=== PATIENT | male | born 2000 | race Caucasian/White ===

== ENCOUNTER 2024-07-18 15:51 | Emergency (ER) | payer OTHER, SELFPAY ==
[2024-07-18 15:59] VITALS: BP 142/78; PULSE 91; TEMP 36.9; O2SAT 99; BMI 32.3
--- NOTE | 2024-07-18 16:04 | CTR_ITS ---
PROCEDURE INFORMATION: Exam: CT Abdomen And Pelvis Without Contrast Exam date and time: 07/18/2024 4:28 PM Age: 24 years old Clinical indication: Other: Blood in urine; Additional info: Flank pain TECHNIQUE: Imaging protocol: Computed tomography of the abdomen and pelvis without contrast. Radiation optimization: All CT scans at this facility use at least one of these dose optimization techniques: automated exposure control; mA and/or kV adjustment per patient size (includes targeted exams where dose is matched to clinical indication); or iterative reconstruction. COMPARISON: No relevant prior studies available. RADIATION DOSE METRICS: Total DLP (mGy-cm): 988.83 FINDINGS: Liver: Normal. No mass. Gallbladder and biliary ducts: Normal. No calcified stones. No ductal dilation. Pancreas: Normal. No ductal dilation. Spleen: Small incidental benign splenule. The spleen is enlarged measuring 14.6 cm. Adrenal glands: Normal. No mass. Kidneys and ureters: Normal. No hydronephrosis. Stomach and bowel: Unremarkable. No obstruction. No mucosal thickening. Appendix: A normal appendix is identified. Intraperitoneal space: Unremarkable. No free air. No significant fluid collection. Vasculature: Unremarkable. No abdominal aortic aneurysm. Lymph nodes: Unremarkable. No enlarged lymph nodes. Urinary bladder: Unremarkable as visualized. Reproductive: Unremarkable as visualized. Bones/joints: There are moderate degenerative changes across the pubic symphysis. Soft tissues: Unremarkable. CT/CT kidney stone [id number] IMPRESSION: Mild splenomegaly.
--- NOTE | 2024-07-18 16:35 | ED_ITS ---
Documented by User: Valdez Wren DO 07/19/24 16:41 HPI - Male Genitourinary 2 General: Chief complaint: Urogenital-Male Stated complaint: Peeing Blood Time Seen by Provider: 07/18/24 16:03 History of Present Illness: 24-year-old male presents emergency room with complaints of gross hematuria as well as some dysuria. Patient noticed it first afternoon after eaten a meal he went to the bathroom he said he could not tell if the blood in the stool was particularly discolored because the lighting in the bathroom is poorly flushed before he really paid any attention he did notice a little bit of diluted blood mixed with urine on the edge of the toilet bowl as well as a single drop of bright red blood at the meatus. He had 1 episode of dysuria after this. No recent trauma to the genitals. He has not had any other penile drainage or discharge. No flank pain no history of bladder or kidney dysfunction or surgeries or other problems. No history of previous nephrolithiasis. Associated symptoms: Reports dysuria and hematuria Related Data Allergies Allergy/AdvReac Type Severity Reaction Status Date / Time No Known Allergies Allergy Verified 07/18/24 16:02 Review of Systems 2 Const: Denies: fever(s) or chills Card: Denies: chest pain Resp: Denies: dyspnea GI: Denies: abdominal pain : Reports: dysuria and hematuria; Denies: urinary frequency or urinary urgency Musc: Denies: neck pain or back pain Skin/Breast: Denies: rash Physical Exam 2 Const: COMMON NORMALS: no acute distress GENERAL APPEARANCE: cooperative and comfortable ORIENTATION/CONSCIOUSNESS: Yes awake, Yes oriented to person, Yes oriented to place and Yes oriented to time HENMT: COMMON NORMALS: normocephalic, atraumatic and hearing grossly normal bilaterally HEAD & SCALP: normocephalic and atraumatic Resp: COMMON NORMALS: normal respiratory effort, No retractions, No use of accessory muscles and clear to auscultation bilaterally AUSCULTATION: clear to auscultation bilaterally Cardio: COMMON NORMALS: regular rate, regular rhythm and No murmurs present (Cardio) RATE: regular rate RHYTHM: regular rhythm GI: COMMON NORMALS: Soft to palpation and No hepatosplenomegaly present A USCULTATION: Yes normoactive bowel sounds PALPATION: Yes Soft to palpation, No Tenderness to palpation present (GI), No Guarding due to palpation present (GI) and Yes No hepatosplenomegaly present Extremity: COMMON NORMALS: normal to inspection, capillary refill normal, no clubbing, cyanosis or edema, no calf tenderness and no pedal edema Neuro: SENSORIUM/ORIENTATION: Yes oriented to person, Yes oriented to place and Yes oriented to time Skin: COMMON NORMALS: no rashes or lesions noted GENERAL SKIN EXAM: no rashes or lesions noted Course 2 Vital Signs: Vital signs: Vital Signs Temperature 98.5 F 07/18/24 15:59 Pulse Rate 87 07/18/24 19:06 Blood Pressure 142/78 07/18/24 15:59 Pulse Oximetry 99 07/18/24 19:06 Oxygen Delivery Me thod Room Air 07/18/24 15:59 MDM - Male Medical Decision Making Care signed out to Dr. Méndez at change of shift. See final notes for diagnosis and disposition. Patient care transitioned me at shift change awaiting CT. No kidney stones. Urine does not appear infected. Follow-up primary care provider. Medical Records I reviewed the patient's medical records. Lab Data I reviewed the patient's lab results. 07/18/24 16:46 07/18/24 16:46 Radiology Impressions Abdomen/Pelvis CT 07/18/24 16:04 IMPRESSION: Mild splenomegaly. Laboratory Results WBC 6.39 10^3/uL (3.29-11.43) 07/18/24 16:46 RBC 5.25 10^6/uL (3.85-5.65) 07/18/24 16:46 Hgb 16.20 g/dL (11.27-16.99) 07/18/24 16:46 Hct 47.0 % (37-53) 07/18/24 16:46 MCV 89.5 fl (82-101) 07/18/24 16:46 MCH 30.9 pg (27-33) 07/18/24 16:46 MCHC 34.5 g/dL (30-55) 07/18/24 16:46 RDW 12.7 % (12.1-15.1) 07/18/24 16:46 Plt Count 157 10^3/cmm (157-399) 07/18/24 16:46 MPV 11.6 fL (7.4-10.4) H 07/18/24 16:46 Neut % (Auto) 64.6 % 07/18/24 16:46 Lymph % (Auto) 25.2 % 07/18/24 16:46 [place] % (Auto) 9.1 % 07/18/24 16:46 Eos % (Auto) 0.6 % 07/18/24 16:46 Baso % (Auto) 0.2 % 07/18/24 16:46 Neut # (Auto) 4.13 10^3/uL (1.8-7.7) 07/18/24 16:46 Lymph # (Auto) 1.6 10^3/uL (0.8-4.8) 07/18/24 16:46 [place] # (Auto) 0.6 10^3/uL (0.2-0.9) 07/18/24 16:46 Eos # (Auto) 0.0 10^3/uL (0.0-0.8) 07/18/24 16:46 Baso # (Auto) 0.0 10^3/uL (0.0-0.1) 07/18/24 16:46 Nucleated RBC % (auto) 0 % 07/18/24 16:46 Nucleated RBCs # 0.0 /100WBC 07/18/24 16:46 PT 13.50 SECONDS (12.1-14.9) 07/18/24 16:46 INR 1.00 (0.8-1.2) 07/18/24 16:46 APTT 31.0 SECONDS (23.9-36.7) 07/18/24 16:46 Sodium 139 mmol/L (136-145) 07/18/24 16:46 Potassium 3.7 mmol/L (3.5-5.1) 07/18/24 16:46 Chloride 103 mmol/L (98-107) 07/18/24 16:46 Carbon Dioxide 29 mmol/L (22-29) 07/18/24 16:46 Anion Gap 10.7 (5-19) 07/18/24 16:46 BUN 13 mg/dL (6-20) 07/18/24 16:46 Creatinine 0.8 mg/dL (0.7-1.2) 07/18/24 16:46 GFR Calculation 120.9 mL/min (90-130) 07/18/24 16:46 Glucose 93 mg/dL (65-115) 07/18/24 16:46 Calculated Osmolality 288 mOsm/kg (285-295) 07/18/24 16:46 Calcium 9.6 mg/dL (8.5-10.5) 07/18/24 16:46 Total Bilirubin 0.5 mg/dL (0.15-1.2) 07/18/24 16:46 AST 17 U/L (0-40) 07/18/24 16:46 ALT 16 U/L (0-41) 07/18/24 16:46 Alkaline Phosphatase 82 U/L (40-130) 07/18/24 16:46 Total Protein 6.3 g/dL (6.6-8.7) L 07/18/24 16:46 Albumin 4.3 g/dL (3.5-5.2) 07/18/24 16:46 Globulin 2.0 g/dL (1.3-4.6) 07/18/24 16:46 Urine Color Yellow (Yellow) 07/18/24 16:46 Urine Appearance Clear (CLEAR) 07/18/24 16:46 Urine pH 6.0 (5-7) 07/18/24 16:46 Ur Specific [place] 1.023 (1.005-1.030) 07/18/24 16:46 Urine Protein Negative (Negative) 07/18/24 16:46 Urine Glucose (UA) Negative (Normal) 07/18/24 16:46 Urine Ketones Negative (Negative) 07/18/24 16:46 Urine Blood 2+ (Negative) A 07/18/24 16:46 Urine Nitrate Negative (Negative) 07/18/24 16:46 Urine Bilirubin Negative (Negative) 07/18/24 16:46 Urine Urobilinogen 1.0 mg/dL (Negative) 07/18/24 16:46 Ur Leukocyte Esterase Negative (Negative) 07/18/24 16:46 Urine RBC 6-10 /hpf (0-2) 07/18/24 16:46 Urine WBC 0-5 /hpf (0-5) 07/18/24 16:46 Ur Squamous Epith Cells 0-5 /hpf (0-5) 07/18/24 16:46 Amorphous Sediment Not Reportable 07/18/24 16:46 Urine Bacteria None seen /hpf (NONE) 07/18/24 16:46 Hyaline Casts 2.46 /lpf 07/18/24 16:46 Discharge Plan Discharge Patient Disposition: Home Clinical Impression: Hematuria Condition: Stable Discharge Orders: Discharge ED (Routine); Ordered 07/18/24 Ordered By: Angelique Méndez Discharge Diet: Usual diet Discharge Activity: Increase activity as tolerated Patient Instructions: Opioid Safety, Pain Management Activity Restrictions/Additional Instructions: Thank you for choosing [facility] for your healthcare needs today. Please realize this is an emergency room and that we are providing you with a medical screening exam and this may not be complete and all inclusive of all the testing and or work up that you may need to determine your ailment or severity of your illness. You have been screened and evaluated and felt safe for discharge. Health conditions do change or evolve sometimes and as such it is important that you follow up with your Primary Doctor to be re checked, 3-5 days is a general good time frame for follow up. You are always welcome to return to the ED for re assessment if your symptoms are worsening or you have new concerns Coding Level of Care Code ED Emergency Veterinarian for [facility] Documented by User: Angelique Méndez MD 07/18/24 18:55 HPI - Male Genitourinary 2 General: Chief complaint: Urogenital-Male Stated complaint: Peeing Blood Time Seen by Provider: 07/18/24 16:03 Related Data Allergies Allergy/AdvReac Type Severity Reaction Status Date / Time No Known Allergies Allergy Verified 07/18/24 16:02 Course 2 Vital Signs: Vital signs: Vital Signs Temperature 98.5 F 07/18/24 15:59 Pulse Rate 87 07/18/24 19:06 Blood Pressure 142/78 07/18/24 15:59 Pulse Oximetry 99 07/18/24 19:06 Oxygen Delivery Me thod Room Air 07/18/24 15:59 MDM - Male Medical Decision Making Patient care transitioned me at shift change awaiting CT. No kidney stones. Urine does not appear infected. Follow-up primary care provider. Lab Data 07/18/24 16:46 07/18/24 16:46 Radiology Impressions Abdomen/Pelvis CT 07/18/24 16:04 IMPRESSION: Mild splenomegaly. Laboratory Results WBC 6.39 10^3/uL (3.29-11.43) 07/18/24 16:46 RBC 5.25 10^6/uL (3.85-5.65) 07/18/24 16:46 Hgb 16.20 g/dL (11.27-16.99) 07/18/24 16:46 Hct 47.0 % (37-53) 07/18/24 16:46 MCV 89.5 fl (82-101) 07/18/24 16:46 MCH 30.9 pg (27-33) 07/18/24 16:46 MCHC 34.5 g/dL (30-55) 07/18/24 16:46 RDW 12.7 % (12.1-15.1) 07/18/24 16:46 Plt Count 157 10^3/cmm (157-399) 07/18/24 16:46 MPV 11.6 fL (7.4-10.4) H 07/18/24 16:46 Neut % (Auto) 64.6 % 07/18/24 16:46 Lymph % (Auto) 25.2 % 07/18/24 16:46 [place] % (Auto) 9.1 % 07/18/24 16:46 Eos % (Auto) 0.6 % 07/18/24 16:46 Baso % (Auto) 0.2 % 07/18/24 16:46 Neut # (Auto) 4.13 10^3/uL (1.8-7.7) 07/18/24 16:46 Lymph # (Auto) 1.6 10^3/uL (0.8-4.8) 07/18/24 16:46 [place] # (Auto) 0.6 10^3/uL (0.2-0.9) 07/18/24 16:46 Eos # (Auto) 0.0 10^3/uL (0.0-0.8) 07/18/24 16:46 Baso # (Auto) 0.0 10^3/uL (0.0-0.1) 07/18/24 16:46 Nucleated RBC % (auto) 0 % 07/18/24 16:46 Nucleated RBCs # 0.0 /100WBC 07/18/24 16:46 PT 13.50 SECONDS (12.1-14.9) 07/18/24 16:46 INR 1.00 (0.8-1.2) 07/18/24 16:46 APTT 31.0 SECONDS (23.9-36.7) 07/18/24 16:46 Sodium 139 mmol/L (136-145) 07/18/24 16:46 Potassium 3.7 mmol/L (3.5-5.1) 07/18/24 16:46 Chloride 103 mmol/L (98-107) 07/18/24 16:46 Carbon Dioxide 29 mmol/L (22-29) 07/18/24 16:46 Anion Gap 10.7 (5-19) 07/18/24 16:46 BUN 13 mg/dL (6-20) 07/18/24 16:46 Creatinine 0.8 mg/dL (0.7-1.2) 07/18/24 16:46 GFR Calculation 120.9 mL/min (90-130) 07/18/24 16:46 Glucose 93 mg/dL (65-115) 07/18/24 16:46 Calculated Osmolality 288 mOsm/kg (285-295) 07/18/24 16:46 Calcium 9.6 mg/dL (8.5-10.5) 07/18/24 16:46 Total Bilirubin 0.5 mg/dL (0.15-1.2) 07/18/24 16:46 AST 17 U/L (0-40) 07/18/24 16:46 ALT 16 U/L (0-41) 07/18/24 16:46 Alkaline Phosphatase 82 U/L (40-130) 07/18/24 16:46 Total Protein 6.3 g/dL (6.6-8.7) L 07/18/24 16:46 Albumin 4.3 g/dL (3.5-5.2) 07/18/24 16:46 Globulin 2.0 g/dL (1.3-4.6) 07/18/24 16:46 Urine Color Yellow (Yellow) 07/18/24 16:46 Urine Appearance Clear (CLEAR) 07/18/24 16:46 Urine pH 6.0 (5-7) 07/18/24 16:46 Ur Specific [place] 1.023 (1.005-1.030) 07/18/24 16:46 Urine Protein Negative (Negative) 07/18/24 16:46 Urine Glucose (UA) Negative (Normal) 07/18/24 16:46 Urine Ketones Negative (Negative) 07/18/24 16:46 Urine Blood 2+ (Negative) A 07/18/24 16:46 Urine Nitrate Negative (Negative) 07/18/24 16:46 Urine Bilirubin Negative (Negative) 07/18/24 16:46 Urine Urobilinogen 1.0 mg/dL (Negative) 07/18/24 16:46 Ur Leukocyte Esterase Negative (Negative) 07/18/24 16:46 Urine RBC 6-10 /hpf (0-2) 07/18/24 16:46 Urine WBC 0-5 /hpf (0-5) 07/18/24 16:46 Ur Squamous Epith Cells 0-5 /hpf (0-5) 07/18/24 16:46 Amorphous Sediment Not Reportable 07/18/24 16:46 Urine Bacteria None seen /hpf (NONE) 07/18/24 16:46 Hyaline Casts 2.46 /lpf 07/18/24 16:46 All radiology interpretation(s) finalized by discharge Discharge Plan Discharge Patient Disposition: Home Clinical Impression: Hematuria Condition: Stable Discharge Orders: Discharge ED (Routine); Ordered 07/18/24 Ordered By: Angelique Méndez Discharge Diet: Usual diet Discharge Activity: Increase activity as tolerated Patient Instructions: Opioid Safety, Pain Management Activity Restrictions/Additional Instructions: Thank you for choosing [facility] for your healthcare needs today. Please realize this is an emergency room and that we are providing you with a medical screening exam and this may not be complete and all inclusive of all the testing and or work up that you may need to determine your ailment or severity of your illness. You have been screened and evaluated and felt safe for discharge. Health conditions do change or evolve sometimes and as such it is important that you follow up with your Primary Doctor to be re checked, 3-5 days is a general good time frame for follow up. You are always welcome to return to the ED for re assessment if your symptoms are worsening or you have new concerns Coding Level of Care Code ED Emergency Veterinarian for [place]
[2024-07-18 16:52] LABS: Basophils % 0.2 %; Eosinophils % 0.6 %; Lymphocytes # 1.6 10^3/uL (0.8-4.8); Lymphocytes % 25.2 %; Mean Corpuscular HGB Conc 34.5 g/dL (30-55); Mean Corpuscular Hemoglobin 30.9 pg (27-33); Mean Corpuscular Volume 89.5 fl (82-101); Mean Platelet Volume 11.6 fL (7.4-10.4); Monocytes # 0.6 10^3/uL (0.2-0.9); Monocytes % 9.1 %; Neutrophils # 4.13 10^3/uL (1.8-7.7); Neutrophils % 64.6 %; Nucleated Red Blood Cells % 0 %; Platelet Count 157 10^3/cmm (157-399); Red Blood Count 5.25 10^6/uL (3.85-5.65); Red Cell Distribution Width 12.7 % (12.1-15.1); White Blood Count 6.39 10^3/uL (3.29-11.43)
[2024-07-18 16:53] LABS: Bilirubin Urine Negative (Negative); Blood Urine 2+ (Negative); Glucose Urine UA Negative (Normal); Ketones Urine Negative (Negative); Leukocyte Esterase Urine Negative (Negative); Nitrate Urine Negative (Negative); Protein Urine Negative (Negative); Specific Gravity, Urine 1.023 (1.005-1.030); Urine Appearance Clear (CLEAR); Urine Color Yellow (Yellow)
[2024-07-18 16:58] LABS: Add Urine Microscopic? YES; Bacteria Urine None Seen /hpf; Hyaline Casts Urine 2.46 /lpf; Squamous Epithelial Cell Urine 0-5 /hpf (0-5); WBC Urine 0-5 /hpf (0-5)
[2024-07-18 17:01] LABS: Add Urine Culture? No
[2024-07-18 17:09] LABS: Alanine Aminotransferase 16 U/L (0-41); Albumin Level 4.3 g/dL (3.5-5.2); Alkaline Phosphatase 82 U/L (40-130); Anion Gap 10.7 (5-19); Aspartate Amino Transferase 17 U/L (0-40); Blood Urea Nitrogen 13 mg/dL (6-20); Calcium 9.6 mg/dL (8.5-10.5); Carbon Dioxide 29 mmol/L (22-29); Chloride 103 mmol/L (98-107); Creatinine Clr Calc Pharmacy 189.2753; Glomerular Filtration Rate 120.9 mL/min (90-130); Glucose 93 mg/dL (65-115); Osmolality Calculated 288 mOsm/kg (285-295); Potassium 3.7 mmol/L (3.5-5.1); Sodium 139 mmol/L (136-145); Total Bilirubin 0.5 mg/dL (0.15-1.2); Total Protein 6.3 g/dL (6.6-8.7)
[2024-07-18 19:06] VITALS: PULSE 87; O2SAT 99
[2024-07-20 12:29] LABS: Chlamydia Trachomatis RNA TMA NOT DETECTED (NOT DETECTED); Neisseria Gonorrhoeae RNA, TMA NOT DETECTED (NOT DETECTED)
== END 2024-07-18 19:07 | disposition home or self-care (01) ==
PROVIDERS: Family Medicine; Emergency Provider Emergency Medicine
DX: R31.9 Hematuria, unspecified (principal)
CPT/HCPCS: 36415; 74176; 80053; 81001; 85025; 85610; 85730; 87491; 87591; 99284